=== PATIENT | female | born 1990 | race Caucasian/White ===

== ENCOUNTER 2018-04-09 17:32 | Inpatient (IN) | payer OTHER ==
[2018-04-09] MEDS: ACTIVATED CHARCOAL PELLETS 25 GM BTTL PO ONE (18:50)
[2018-04-09] MEDS: SODIUM CHLORIDE 0.9% 1000ML 1,000 ML IVS ONE (18:50)
--- NOTE | 2018-04-09 18:57 | RAD ---
EXAM DESCRIPTION: Abdomen Series CLINICAL HISTORY: possible ingestyion COMPARISON: None FINDINGS: Frontal view of the chest and supine and upright images of the abdomen were submitted. Cardiac silhouette is within normal limits. There is no focal parenchymal or pleural disease. There is no free air in the abdomen. There is no evidence of bowel obstruction. IUD projects over the pelvis. IMPRESSION: No acute abnormalities. Electronically signed by: Cam Carter 04/09/2018 6:55 PM CDT
--- NOTE | 2018-04-09 20:51 | ED.PDOC ---
History of Present Illness - General Chief Complaint: Drug or Alcohol Abuse Time Seen by Provider: 04/09/18 17:40 Source: patient, police Exam Limitations: no limitations - History of Present Illness Initial Comments: the patient is a 27-year-old female in custody being brought in by police after it was thought that she might have ingested some drugs or inserted some drugs into her vagina or her rectum while she was being booked. The patient adamantly denies this. She is straight forward and that she admits taking methamphetamine and marijuana in the last few days. She is relatively cooperative. She is anxious. She is alert and oriented. Again she adamantly denies this. She was brought here for examination. Timing/Duration: unsure Improving Factors: nothing Worsening Factors: nothing Associated Symptoms: denies symptoms Allergies/Adverse Reactions: Allergies NO KNOWN ALLERGY Allergy (Unverified 06/29/13 17:48) Home Medications: Ambulatory Orders Vit W/ Ferrous Fumara [ Formula] 1 06/29/13 HYDROcodone 5MG/APAP 325MG [[place] 5/325] 1 ea PO .Q8HR PRN #10 tab 07/01/13 Ibuprofen [Motrin] 600 mg PO .Q8HR PRN #21 tab 07/01/13 Review of Systems - Review of Systems Constitutional: States: no symptoms reported EENTM: States: no symptoms reported Respiratory: States: no symptoms reported Cardiology: States: no symptoms reported Gastrointestinal/Abdominal: States: no symptoms reported Genitourinary: States: no symptoms reported Musculoskeletal: States: no symptoms reported Skin: States: no symptoms reported Neurological: States: anxiety Endocrine: States: no symptoms reported All other Systems: No Change from Baseline Past Medical History (General) - Patient Medical History Hx Seizures: No Hx Stroke: No Hx Dementia: No Hx Asthma: No Hx of COPD: No Hx Cardiac Disorders: No Hx Congestive Heart Failure: No Hx Pacemaker: No Hx Hypertension: No Hx Thyroid Disease: No Hx Diabetes: No Hx Gastroesophageal Reflux: No Hx Renal Disease: No Hx Cancer: No Hx of HIV: No Hx Hepatitis C: No Hx MRSA: No Surgical History: no surgical history - Vaccination History Hx Tetanus, Diphtheria Vaccination: No Hx Influenza Vaccination: No Hx Pneumococcal Vaccination: No Immunizations Up to Date: No - Social History Hx Tobacco Use: No Hx Chewing Tobacco Use: No Hx Alcohol Use: No Hx Substance Use: No Hx Substance Use Treatment: No Hx Depression: No Feels Threatened In Home Enviroment: No Feels Threatened In a Relationship: No Hx Physical Abuse: No Hx Emotional Abuse: No Hx Suspected Abuse: No - Activities of Daily Living Hospice Agency (if applicable):: None - Female History Patient is a Female of Child Bearing Age (10 -59 yrs old): Yes Hx Last Menstrual Period: 09/18/12 Patient : No Expected Date of Delivery:: 06/25/13 Family Medical History - Family History Mother Family History: Unknown Physical Exam - Physical Exam General Appearance: Alert, Anxious, No apparent distress Eye Exam: bilateral normal Ears, Nose, Throat: hearing grossly normal, normal ENT inspection, normal pharynx Neck: full range of motion, supple Respiratory: lungs clear, normal breath sounds, no respiratory distress, no accessory muscle use Cardiovascular/Chest: normal peripheral pulses, no edema, tachycardia - borderline sinus tachycardia Peripheral Pulses: radial,right: 2+, radial,left: 2+, dorsalis pedis,right: 2+, dorsalis pedis,left: 2+ Gastrointestinal/Abdominal: non tender, soft Rectal Exam: other - digital exam of the vaginal vault and the rectal vault show no evidence of any foreign body Back Exam: no CVA tenderness, no vertebral tenderness Extremity: normal range of motion, non-tender, normal inspection, no pedal edema , normal capillary refill 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, no motor/sensory deficits, alert, oriented x 3, other - she is anxious Skin Exam: normal color Comments: Vital Signs - 24 hr 04/09/18 04/09/18 04/09/18 17:33 19:33 20:00 Temperature 98.3 F Pulse Rate [ 109 H 97 H 101 H Apical] Respiratory 18 16 16 Rate Blood Pressure 143/95 139/90 117/90 [Left Arm] O2 Sat by Pulse 100 97 100 Oximetry 04/09/18 20:42 Temperature Pulse Rate [ 94 H Apical] Respiratory 16 Rate Blood Pressure 117/90 [Left Arm] O2 Sat by Pulse 100 Oximetry Progress - Progress Progress: 04/09/18 20:53 the patient's a 27-year-old female brought in by [facility] secondary to the suspicion of having ingested illegal drugs. The patient adamantly denies this. Aside from borderline sinus tachycardia upon arrival the patient shows no acute signs of ingesting anything. She does not have significant hypotension or markedly tachycardia. No hyperthermia. No altered mental status other than some anxiety. X-ray and Research shows no evidence of any obvious ingestion or packing. Poison control was contacted and the recommendations are being followed. The patient will be monitored on telemetry monitoring overnight. She appears to be resting comfortably. - Results/Orders Results/Orders: 04/09/18 18:23 Telemetry .CONTINUOUS 04/09/18 18:30 EKG STAT EKG shows mild sinus tachycardia 108 bpm. The patient does have sinusitis versus which makes this less accurate. No obvious ST segment elevation or depression concerning for acute ischemia. Scattered Q waves thought to be more a component of the sinus inversus. Laboratory Results - last 24 hr 04/09/18 04/09/18 04/09/18 18:23 18:40 18:40 WBC 4.5 L RBC 4.56 Hgb 13.8 Hct 41.0 MCV 89.9 MCH 30.2 MCHC 33.6 RDW 13.0 Plt Count 180 MPV 8.9 Absolute Neuts (auto) 3.00 Absolute Lymphs (auto) 1.00 Absolute Monos (auto) 0.40 Absolute Eos (auto) 0.00 Absolute Basos (auto) 0.00 Neutrophils % 68.1 Lymphocytes % 22.7 Monocytes % 8.3 Eosinophils % 0.5 L Basophils % 0.4 PT INR PTT (SP) Sodium 137 Potassium 3.6 Chloride 104 Carbon Dioxide 26 Anion Gap 10.6 L BUN 8 Creatinine 0.79 BUN/Creatinine Ratio 10.1 Random Glucose 108 H Serum Osmolality 272.7 L Calcium 9.6 Total Bilirubin 0.6 AST 33 ALT 47 Alkaline Phosphatase 63 Creatine Kinase 85 CK-MB (CK-2) 2.3 CK-MB (CK-2) % Not Reportable Troponin I < 0.02 Serum Total Protein 8.1 Albumin 4.3 Globulin 3.8 H Albumin/Globulin Ratio 1.1 Serum HCG, Qual Salicylates Urine Opiates Screen Negative Acetaminophen < 10.0 L Urine Barbiturates Negative Ur Phencyclidine Scrn Negative U Amphetamin/Meth Scrn Positive H U Benzodiazepines Scrn Negative U Cocaine Metab Screen Negative U Cannabinoids Screen Positive H Ethyl Alcohol 04/09/18 04/09/18 04/09/18 18:40 18:40 18:40 WBC RBC Hgb Hct MCV MCH MCHC RDW Plt Count MPV Absolute Neuts (auto) Absolute Lymphs (auto) Absolute Monos (auto) Absolute Eos (auto) Absolute Basos (auto) Neutrophils % Lymphocytes % Monocytes % Eosinophils % Basophils % PT 10.1 INR 1.01 PTT (SP) 25.1 Sodium Potassium Chloride Carbon Dioxide Anion Gap BUN Creatinine BUN/Creatinine Ratio Random Glucose Serum Osmolality Calcium Total Bilirubin AST ALT Alkaline Phosphatase Creatine Kinase CK-MB (CK-2) CK-MB (CK-2) % Troponin I Serum Total Protein Albumin Globulin Albumin/Globulin Ratio Serum HCG, Qual Negative Salicylates Urine Opiates Screen Acetaminophen Urine Barbiturates Ur Phencyclidine Scrn U Amphetamin/Meth Scrn U Benzodiazepines Scrn U Cocaine Metab Screen U Cannabinoids Screen Ethyl Alcohol 0.30 acute abdominal series shows no acute pathology. - EKG/XRAY/CT CT Ordered: No CT Interpretation Call Back: No Departure - Departure Clinical Impression: Methamphetamine abuse Disposition: Admit Patient Condition: Fair Departure Forms: ED Discharge - Pt. Copy, Patient Portal Self Enrollment Home Medications: Ambulatory Orders Vit W/ Ferrous Fumara [ Formula] 1 06/29/13 HYDROcodone 5MG/APAP 325MG [[place] 5/325] 1 ea PO .Q8HR PRN #10 tab 07/01/13 Ibuprofen [Motrin] 600 mg PO .Q8HR PRN #21 tab 07/01/13 Decision To Admit - Decistion To Admit Decision to Admit Reason: Medical Nature Decision to Admit Date: 04/09/18 Decision to Admit Time: 20:55
--- NOTE | 2018-04-09 21:22 | HP ---
SUPERVISING PHYSICIAN: Joel Segundo MD CHIEF COMPLAINT: Drug abuse. HISTORY OF PRESENT ILLNESS: Ms. Tolliver is a 27-year-old, female patient that is currently in custody at the [place] [employer]. She was brought to the Emergency Room early today by police after it was thought that during the process of booking, she inserted some drugs, either into her vagina or rectum or ingested. The patient on admission to the Emergency Room was adamant that she had not done any of the above. She notes she had been pulled over for a traffic violation earlier today and had some warrants out for her arrest and was at that time taken into custody. She does admit that she does use methamphetamines and marijuana on a very frequent basis, but has not had possession of substances such that she was able to ingest or insert into either her vagina or rectum. On Emergency Room exam, she was found to be alert and oriented with vital signs showing heart rate 109, temperature 98.3, blood pressure 143/95, saturation 100% on room air. She then had a full workup including radiographic studies for abdominal x-ray and per radiologic interpretation there were no acute abnormalities noted. Laboratory studies showed normal white count, normal PT, PT-T. Chemistries were essentially unremarkable with HCG serum negative. Toxicology workup included a urine drug screen that was positive for methamphetamines and cannabinoids, but negative for acetaminophen or ethanol or salicylates. EKG at the time of admission showed sinus tachycardia at 108. There was no obvious ST segment elevation or depression concerning for ischemic event. Dr. Morse, the Emergency Room physician, did a pelvic and rectal exam and did not find any foreign substance or any other items of concern. She also had a charcoal treatment with no return of pills or foreign objects. Poison Control was contacted and recommended the patient be placed in observation for cardiac telemetry for at least 3 to 4 hours to allow for passage of the items that were supposedly ingested or any signs or symptoms of absorption of the accused ingestion. The patient was again very adamant that she had not done anything that was said by the marketing and communications officer as far as ingesting drugs or inserting drugs into either her rectum or her vagina. The amount reported that she supposedly ingested is unknown. She was observed in the Emergency Room for well over 3 hours and was found to have no significant change in her vital signs. At that point, Dr. Morse requested the patient be admitted to the Medical/Surgical Floor for further telemetry and observation for at least a total of 24 hours. The patient was admitted in stable condition, currently in custody and escorted by law enforcement. PAST MEDICAL HISTORY: No significant chronic medical history. PAST SURGICAL HISTORY: 1. Appendectomy. 2. Ovarian cyst removal. CHRONIC MEDICATIONS: No chronic home medications listed. She does have a Mirena IUD in place that has been in place for approximately 3 years. ALLERGIES: NO KNOWN DRUG ALLERGIES. FAMILY HISTORY: Noncontributory. 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 She has two children. She is single and lives in [place], [place]. She admits to using methamphetamines and marijuana on a fairly frequent basis, at least weekly with the last being noted about three days prior to admission and she notes she does drink alcohol infrequently and smokes one pack every other day of cigarettes. REVIEW OF SYSTEMS: CONSTITUTIONAL: Denies any fevers, chills, body aches, general malaise, or unintentional weight loss or gain. HEENT: Denies headaches, sore throats, nasal congestion, earaches, vision changes. RESPIRATORY: Denies shortness of breath, wheezing, coughing, orthopnea. CARDIOVASCULAR: Denies chest pain, palpitations or syncopal episodes. GASTROINTESTINAL: Denies nausea or vomiting, diarrhea, constipation or abdominal pains. GENITOURINARY: Denies dysuria, hematuria, polyuria. NEUROLOGIC: Denies headaches, seizures, ataxia. She does note that she has some anxiety, but no focal deficits. PHYSICAL EXAMINATION: VITAL SIGNS: Initial vital signs showed temperature 98.3. Pulse 109. Blood pressure 143/95. Respirations 18. Saturation 100% on room air. After 3 hours and admission to the Medical/Surgical Floor, temperature was 97.5. Pulse 82. Blood pressure 127/80. Respirations 18. Saturation 98% on room air. Admission weight 67.8 kg. GENERAL: The patient is currently shackled with handcuffs. She appears to be in no acute distress, well-nourished, well-hydrated. HEENT: Tympanic membranes clear bilaterally. Oropharynx is pink, moist without any lesions. NECK: Supple, nontender with full range of motion. No jugular venous distention noted. RESPIRATORY: Lungs clear to auscultation bilaterally without any rhonchi, wheezes, or rales. CARDIOVASCULAR: Regular rate and rhythm without any appreciable murmurs, gallops, or rubs. ABDOMEN: Soft, nontender. Positive bowel sounds. RECTAL: Deferred as it was completed in the Emergency Room. Per the Emergency Room physician, digital exam in vaginal vault and rectal vault showed no evidence of any foreign body. BACK: No CVA tenderness, no vertebral tenderness, atraumatic. EXTREMITIES: There is no cyanosis, clubbing or edema. NEUROLOGIC: The patient is alert and oriented times three, only slightly anxious. Cranial nerves II-XII are grossly intact. Facial features are symmetrical. Extraocular movements are within normal limits. There is no nystagmus noted. SKIN: [place], warm and dry. LABORATORY: CBC showed white count 4,500, hemoglobin 13.8, hematocrit 41.0, platelet count 108,000, differential within normal limits. She had normal PT, PT-T. Chemistry showed normal electrolytes. Anion gap was low at 10.6, BUN 8, creatinine 0.79, glucose 108, calcium 9.6. Liver functions all within normal limits. Troponin less than 0.02. Serum HCG negative. Toxicology showed urine drug screen was positive for amphetamines and cannabinoids. Alcohol was 0.3. Acetaminophen less than 10. Salicylates were within normal limits. MICROBIOLOGY: No specimens were submitted RADIOLOGY: Abdominal x-ray in the Emergency Room per radiologic interpretation showed no acute abnormalities. ASSESSMENT: 1. Methamphetamine abuse as noted by urine drug screen with concern for possible ingestion of excessive amount of methamphetamines orally during booking this afternoon with no signs of tachycardia or other symptoms of excessive methamphetamine use. 2. Tobacco abuse, encouraged to stop smoking. PLAN: The patient is going to be admitted to the Medical/Surgical Floor on recommendation by Poison Control to closely observe the patient's physiological condition with cardiac telemetry, frequent neurologic assessment and watch closely for changes in vital signs including tachycardia, increasing temperature and mental status changes. She will remain in custody. At time of admission, she was escorted by the police department. We will anticipate her length of stay to be at least 1 to 2 days for a safe period of time, at least 24 hours, to ensure that nothing has been absorbed or that she had ingested an excessive amount of methamphetamines. Once it is felt the patient is safe enough for discharge, she will be discharged back to the custody of the police department. She will need followup in the outpatient setting with Dr. Stephen, her primary care physician. Again, she was encouraged to stop smoking as well as stop utilizing illicit drugs. Until discharge, we will continue to monitor the patient closely and treat as needed. #[id number] [facility]
[2018-04-09] MEDS ORDERED: SODIUM CHLORIDE 0.9% (FLUSH) 10 ML SYG IV PRN (22:03)
[2018-04-09] MEDS ORDERED: ACETAMINOPHEN 325 MG TAB PO PRN (22:03)
[2018-04-09] MEDS: IV SET AND CAP CHANGE INJ INJ SCH (22:22)
[2018-04-10 01:23] VITALS: O2SAT 98
[2018-04-10] MEDS: MAGNESIUM HYDROXIDE 30 ML UD PO ONE ×2 (08:52→10:36)
[2018-04-10 10:30] VITALS: BP 116/73; TEMP 98.5
[2018-04-10] MEDS ORDERED: BISACODYL SUPPOSITORY 10 MG PR ONE (12:57)
--- NOTE | 2018-04-11 08:05 | DS ---
SUPERVISING PHYSICIAN: Joel Segundo MD DISCHARGE DIAGNOSIS: 1. Methamphetamine abuse as noted by urine drug screen. The patient ingested an excessive amount of methamphetamines orally during booking and this afternoon, she had a bowel movement and she passed what appeared to be rock of crack cocaine. 2. Tobacco abuse, encouraged to stop smoking. HISTORY OF PRESENT ILLNESS: This is a 27-year-old, female patient that is currently in custody of the [place] [employer]. She was brought to the Emergency Room on the day of admission after police felt that she had inserted some drugs either into her vagina or rectum or ingested it. The patient on admission to the Emergency Room was adamant that she had not done that. She had been pulled over for a traffic violation earlier and had some warrants out for her arrest and was taken into custody. She admits to use of methamphetamines and marijuana, but she said she had no possession of the substances. She was given a full body search in the Emergency Room. Her vital signs showed a heart rate 109, temperature 98.3, blood pressure 143/95, saturation 100% on room air. Radiographic studies showed no acute abnormalities. Laboratory studies showed normal white count, normal PT, PT-T. Chemistries were essentially unremarkable with HCG serum negative. Toxicology workup included a urine drug screen that was positive for methamphetamines and cannabinoids, but negative for acetaminophen, ethanol or salicylates. EKG at the time of admission showed sinus tachycardia at 108. There was no ST segment elevation or depression concerning for ischemic event. There were no foreign substances found with rectal and pelvic exam. She also had a charcoal treatment with no return of pills or foreign objects. Poison Control was contacted and recommended the patient be placed in observation for cardiac telemetry for at least 3 to 4 hours to allow for passage of the items that were supposedly ingested or any signs or symptoms of absorption of the accused ingestion. She was observed in the Emergency Room for well over 3 hours and had no significant change in her vital signs. Dr. Morse, Emergency Room physician, requested the patient be admitted to the Medical/Surgical Floor for further telemetry and observation for at least a total of 24 hours. The patient was admitted in stable condition. HOSPITAL COURSE: The patient's vital signs remained stable during her hospital visit. She was afebrile. Her heart rate ran from 109 and in the last 12 hours , it has been in the 70s. Her blood pressure was stable, her last blood pressure being 116/73. Respiratory rate was 20. O2 saturation remained at greater than 98% on room air. There were no further laboratory studies done. She was given two doses of Milk of Magnesia and the patient finally passed in a bowel movement a small rock-type substance that appeared to be crack cocaine. The substance was cleaned and given to the police officers for evidence and the patient will be discharged in stable condition. DISCHARGE PLAN: The patient will be discharged in stable condition. She is to followup with Dr. Garcia at the [facility]. She has no home medications. She is to return to the hospital for any further problems or complications. DISCHARGE MEDICATIONS: None. #[id number] [facility]
== END 2018-04-10 14:40 | DRG 951 ==
LOC: ER 17:32 → OBSVTOIN 21:21 → MS 21:21
PROVIDERS: ADMIT Nurse Practitioner Family; ATTEND Nurse Practitioner Acute Care
DX: Z03.6 Encounter for observation for suspected toxic effect from ingested substance ruled out (principal); F15.10 Other stimulant abuse, uncomplicated; F17.210 Nicotine dependence, cigarettes, uncomplicated; F12.90 Cannabis use, unspecified, uncomplicated